=== PATIENT | female | born 1950 | race Two or more races ===

== ENCOUNTER → 2019-10-08 | Day surgery (SDC) | payer OTHER ==
--- NOTE | 2019-10-09 16:16 | PATH ---
Surgical Pathology Report Patient Name: IZABELA THORPE [facility]. Rec. #: [id number] /Age/Gender: 1950 (Age: 68) / F Account: [id number] Location: [facility] Taken: 10/08/2019 Received: 10/08/2019 Reported: 10/09/2019 Physicians: Jeffrey Skinner M.D. Specimen(s) Received A: RIGHT SPECIMEN-WITH CALCIFICATIONS B: RIGHT BREAST SPECIME-WITHOUT CALCIFICATIONS Clinical History Nonpalpable lesion Mammographic findings: Microcalcifications, suspicious Final Diagnosis A. RIGHT BREAST SPECIMEN - WITH CALCIFICATION, STEREOTACTIC BIOPSY: BREAST TISSUE WITH FIBROADENOMA AND ASSOCIATED MICROCALCIFICATIONS. REMAINING BREAST TISSUE SHOWING STROMAL FIBROSIS. B. RIGHT BREAST SPECIMEN - WITHOUT CALCIFICATION, STEREOTACTIC BIOPSY: BREAST TISSUE WITH FIBROADENOMA. REMAINING BREAST TISSUE SHOWING STROMAL FIBROSIS. Electronically Signed Ibeth Carroll M.D. Gross Description A. Received in formalin labeled "right breast with calcification," is a 2.4 x 2.2 x 0.3 cm aggregate of lepe-yellow, irregular to cylindrical portions of fibroadipose tissue. The formalin is filtered and the specimen is entirely submitted 2 cassettes. B. Received in formalin labeled "right breast without calcifications," is a 2.2 x 1.8 x 0.3 cm aggregate of lepe-yellow, irregular to cylindrical portions of fibroadipose tissue. The formalin is filtered and the specimen is entirely submitted in one cassette. Time to formalin fixation: 5 minutes Total formalin fixation time: Approximately 7 hours. 10/08/201910/08/2019
== END | disposition home or self-care (01) ==
LOC: FMAMMOTONE 09:22
PROVIDERS: ATTEND Internal Medicine
PROC: 0H9T3ZX Drainage of Right Breast, Percutaneous Approach, Diagnostic (ICD-10-PCS; principal; 2019-10-08)
DX: D24.1 Benign neoplasm of right breast (principal)
CPT/HCPCS: 19081; 76098-TC-FY; 87899; 88305-TC; A4648

== ENCOUNTER → 2022-03-08 | Day surgery (SDC) | payer OTHER | END | disposition home or self-care (01) | LOC: FMAMMOTONE 08:24 | PROVIDERS: ATTEND Internal Medicine | PROC: 0HBU3ZX Excision of Left Breast, Percutaneous Approach, Diagnostic (ICD-10-PCS; principal; 2022-03-08) | DX: D05.12 Intraductal carcinoma in situ of left breast (principal); N64.89 Other specified disorders of breast; D24.2 Benign neoplasm of left breast; R92.0 Mammographic microcalcification found on diagnostic imaging of breast | CPT/HCPCS: 19081; 19082; 76098-TC-FY; 88305-TC; 88341-TC; 88342-TC ==

== ENCOUNTER → 2022-03-19 | Day surgery (SDC) | payer OTHER | END | disposition home or self-care (01) | LOC: JASU-SURG 09:35 | PROVIDERS: ATTEND Internal Medicine Endocrinology, Diabetes & Metabolism | PROC: 0G9G3ZX Drainage of Left Thyroid Gland Lobe, Percutaneous Approach, Diagnostic (ICD-10-PCS; principal; 2022-03-19) | DX: E04.1 Nontoxic single thyroid nodule (principal) | CPT/HCPCS: 10007; 76942; 88173; 88305-TC; 88342-TC ==

== ENCOUNTER 2022-05-21 04:29 | Inpatient (IN) | payer OTHER ==
[2022-05-17 15:16] VITALS: BMI 26.5
[2022-05-21] MEDS ORDERED: LIDOCAINE HCL 1%, 10 MG/ML (20ML VIAL) ONE (09:41)
[2022-05-21] MEDS ORDERED: ISOSULFAN BLUE 50 MG/5 ML VIAL SQ ONE (09:41)
[2022-05-21] MEDS ORDERED: DEXMEDETOMIDINE HCL 200 MCG/2 ML IVPB ONE (10:21)
[2022-05-21] MEDS ORDERED: ACETAMINOPHEN INJECTION 100 ML IVPB ONE (10:22)
[2022-05-21] MEDS ORDERED: ceFAZolin SODIUM 1 GM VIAL IVPB ONE (10:55)
[2022-05-21] MEDS ORDERED: SUCCINYLCHOLINE CHLORIDE 200 MG/10 ML SYRINGE ONE (11:32)
[2022-05-21] MEDS ORDERED: PROPOFOL 20 ML ONE (11:42)
[2022-05-21] MEDS ORDERED: ALPRAZolam 1 MG TABLET PO ONE (12:42)
[2022-05-21] MEDS ORDERED: ACETAMINOPHEN 500 MG TABLET (FP) PO PRN (12:42)
[2022-05-21] MEDS ORDERED: ONDANSETRON 4 MG/2 ML VIAL IVPB PRN (12:42)
[2022-05-21] MEDS ORDERED: HYDROmorphone HCl 2 MG/ML VIAL IM PRN (12:43)
[2022-05-21] MEDS ORDERED: LACTATED RINGERS SOLUTION 1,000 ML IV SCH (14:45)
[2022-05-21] MEDS ORDERED: ceFAZolin SODIUM 1 GM VIAL ONE (17:59)
[2022-05-21] MEDS: CEFAZOLIN 1 GM in DEXTROSE 5%-WATER - 50 ML IVPB SCH ×2 (18:00)
[2022-05-22] MEDS ORDERED: DEXTROSE 5%-WATER - 50 ML IVPB ONE (10:39)
[2022-05-22] MEDS ORDERED: ceFAZolin SODIUM 1 GM VIAL ONE (10:39)
[2022-05-22] MEDS: CEFAZOLIN 1 GM in DEXTROSE 5%-WATER - 50 ML IVPB SCH (10:46)
[2022-05-22 14:08] VITALS: BP 106/60; PULSE 79; TEMP 98.7
== END 2022-05-22 16:31 | disposition home or self-care (01) | DRG 581 ==
LOC: J2C 04:29 → EDSTATUS 10:00 → J5S 22:22
PROVIDERS: ADMIT Surgery; ATTEND Surgery
PROC: 0HTU0ZZ Resection of Left Breast, Open Approach (ICD-10-PCS; principal; 2022-05-21 10:00)
PROC: 07B60ZX Excision of Left Axillary Lymphatic, Open Approach, Diagnostic (ICD-10-PCS; 2022-05-21 10:00)
DX: D05.12 Intraductal carcinoma in situ of left breast (principal)
CPT/HCPCS: 88307-TC; 88309-TC; 94760; A9541

== ENCOUNTER → 2023-01-21 | Day surgery (SDC) | payer OTHER | END | disposition home or self-care (01) | LOC: FMAMMOTONE 08:24 | PROVIDERS: ATTEND Surgery | PROC: 0HBT3ZX Excision of Right Breast, Percutaneous Approach, Diagnostic (ICD-10-PCS; principal; 2023-01-21) | DX: R92.8 Other abnormal and inconclusive findings on diagnostic imaging of breast (principal); N60.91 Unspecified benign mammary dysplasia of right breast; N62 Hypertrophy of breast; N64.89 Other specified disorders of breast | CPT/HCPCS: 19081; 76098-TC-FY; 87899; 88305-TC; A4648 ==

== ENCOUNTER 2023-02-26 04:17 | Day surgery (SDC) | payer OTHER ==
[2023-02-25 10:32] VITALS: BMI 28.3
[~2023-02-26 04:17] MED LIST: LIDOCAINE HCL 1%, 10 MG/ML (20ML VIAL) NR ONE
[2023-02-26] MEDS ORDERED: LIDOCAINE HCL 1%, 10 MG/ML (10ML VIAL) MDV ONE (07:44)
[2023-02-26] MEDS ORDERED: ceFAZolin SODIUM 1 GM VIAL ONE (11:43)
[2023-02-26] MEDS ORDERED: MIDAZOLAM HCL 2 MG/2 ML SINGLE DOSE VIAL ONE (11:43)
[2023-02-26] MEDS ORDERED: LIDOCAINE HCL/PF 2% SDV 5ML VIAL ONE (11:43)
[2023-02-26] MEDS ORDERED: PROPOFOL 20 ML ONE (11:43)
[2023-02-26] MEDS ORDERED: LIDOCAINE HCL 1%, 10 MG/ML (20ML VIAL) NR ONE ×2 (12:08)
[2023-02-26] MEDS ORDERED: DEXAMETHASONE SOD PHOSPHATE 4 MG/1 ML VIAL ONE (12:11)
[2023-02-26] MEDS ORDERED: ONDANSETRON 4 MG/2 ML VIAL ONE (12:11)
[2023-02-26] MEDS ORDERED: ONDANSETRON 4 MG/2 ML VIAL IVPUSH PRN (12:44)
[2023-02-26] MEDS ORDERED: ACETAMINOPHEN 325 MG TABLET (FP) PO PRN (12:44)
[2023-02-26] MEDS ORDERED: LACTATED RINGERS SOLUTION 1,000 ML IV SCH (12:45)
[2023-02-26] MEDS ORDERED: KETOROLAC TROMETHAMINE 30 MG/1 ML VIAL IVPUSH PRN (12:45)
[2023-02-26 13:17] VITALS: RESP 18
[2023-02-26] MEDS ORDERED: ACETAMINOPHEN 325 MG TABLET (FP) ONE (14:38)
[2023-02-26 16:23] VITALS: TEMP 97.8
[2023-02-26 16:31] VITALS: BP 120/76; PULSE 69
== END 2023-02-26 15:00 | disposition home or self-care (01) ==
LOC: JASU-SURG 04:17
PROVIDERS: ATTEND Surgery
PROC: 0HBT0ZZ Excision of Right Breast, Open Approach (ICD-10-PCS; principal; 2023-02-26 10:30)
DX: D05.11 Intraductal carcinoma in situ of right breast (principal)
CPT/HCPCS: 19281; 76098-TC-FY; 88307-TC; 88342-TC; 94760

== ENCOUNTER 2023-04-08 05:42 | Day surgery (SDC) | payer OTHER ==
[2023-04-04 13:02] VITALS: BMI 25.7
[2023-04-08] MEDS ORDERED: ISOSULFAN BLUE 50 MG/5 ML VIAL SQ ONE (07:27)
[2023-04-08] MEDS ORDERED: BUPIVACAINE HCL/PF 0.5% (5MG/ML) 10 ML VIAL ONE (08:26)
[2023-04-08] MEDS ORDERED: ROCURONIUM BROMIDE 50 MG/5 ML SYRINGE ONE (08:41)
[2023-04-08] MEDS ORDERED: PROPOFOL 20 ML ONE (08:41)
[2023-04-08] MEDS ORDERED: ceFAZolin SODIUM 1 GM VIAL IVPB ONE (08:52)
[2023-04-08] MEDS ORDERED: KETOROLAC TROMETHAMINE 30 MG/1 ML VIAL ONE (09:43)
[2023-04-08] MEDS ORDERED: DEXAMETHASONE SOD PHOSPHATE 4 MG/1 ML VIAL ONE (09:43)
[2023-04-08] MEDS ORDERED: ceFAZolin SODIUM 1 GM VIAL ONE ×3 (09:43→15:04)
[2023-04-08] MEDS ORDERED: ONDANSETRON 4 MG/2 ML VIAL ONE (09:43)
[2023-04-08] MEDS ORDERED: GLYCOPYRROLATE 0.2 MG/1 ML VIAL ONE ×2 (09:48)
[2023-04-08] MEDS ORDERED: NEOSTIGMINE METHYLSULFATE 0.5 MG/1 ML - 10 ML MDV ONE (09:48)
[2023-04-08] MEDS ORDERED: MEPERIDINE HCL 25 MG/ML VIAL IM PRN (10:12)
[2023-04-08] MEDS ORDERED: ONDANSETRON 4 MG/2 ML VIAL IVPUSH PRN (10:13)
[2023-04-08] MEDS ORDERED: oxyCODONE HCL 5 MG TABLET PO PRN (10:13)
[2023-04-08] MEDS ORDERED: LACTATED RINGERS SOLUTION 1,000 ML IV SCH (10:15)
[2023-04-08] MEDS: CEFAZOLIN 1 GM in DEXTROSE 5%-WATER - 50 ML IVPB SCH (16:00)
[2023-04-09] MEDS: CEFAZOLIN 1 GM in DEXTROSE 5%-WATER - 50 ML IVPB SCH ×2 (00:36→09:46)
[2023-04-09 18:03] VITALS: BP 140/68; PULSE 83; RESP 18; TEMP 98.3
== END 2023-04-09 18:34 | disposition home or self-care (01) ==
LOC: JASUSAT 05:42 → J7W 16:28 → JASUSAT 04-09 18:34
PROVIDERS: ATTEND Surgery
PROC: 07B80ZX Excision of Right Internal Mammary Lymphatic, Open Approach, Diagnostic (ICD-10-PCS; 2023-04-08)
PROC: C71L1ZZ Planar Nuclear Medicine Imaging of Upper Chest Lymphatics using Technetium 99m (Tc-99m) (ICD-10-PCS; 2023-04-08)
PROC: 0HTT0ZZ Resection of Right Breast, Open Approach (ICD-10-PCS; principal; 2023-04-08 08:00)
PROC: 07B50ZX Excision of Right Axillary Lymphatic, Open Approach, Diagnostic (ICD-10-PCS; 2023-04-08 08:00)
DX: D05.11 Intraductal carcinoma in situ of right breast (principal)
CPT/HCPCS: 78195-TC; 88307-TC; 88342-TC; 94010; 94760; A9541

== ENCOUNTER 2023-04-13 01:22 | Emergency (ER) | payer OTHER ==
[2023-04-13 01:43] VITALS: BP 172/90; PULSE 77; RESP 16; TEMP 97.8; BMI 25.7
== END 2023-04-13 04:50 | disposition home or self-care (01) ==
LOC: JER 01:22
DX: G89.18 Other acute postprocedural pain (principal)
CPT/HCPCS: 99282-25